=== PATIENT | female | born 1970 | race Two or more races ===

== ENCOUNTER 2022-07-03 16:29 | Emergency (ER) | payer OTHER ==
[~2022-07-03] VITALS: Ht 154.9 cm; Wt 61.2 kg
[2022-07-03] MEDS ORDERED: NORETHINDRONE AC5 MG PO (16:38)
== END 2022-07-03 21:53 | disposition home or self-care (01) ==
LOC: ER 16:29
DX: R10.2 Pelvic and perineal pain (principal)

== ENCOUNTER 2024-11-29 10:45 | Inpatient (IN) | payer OTHER ==
[~2024-11-29] VITALS: Ht 30.5 cm; Wt 63.5 kg
[~2024-11-29 10:45] MED LIST: NORETHINDRONE AC5 MG PO
[2024-11-29 15:18] LABS: RH POSITIVE
[2024-12-05] MEDS ORDERED: RINGERS SOLUTION,LACTATED 1,000 ML IV SCH (10:09)
[2024-12-05] MEDS ORDERED: CELECOXIB 200 MG CAPSULE PO STA (10:10)
[2024-12-05] MEDS ORDERED: GABAPENTIN 100 MG CAPSULE PO SCH (10:10)
[2024-12-05] MEDS ORDERED: MORPHINE SULFATE 4 MG/ML VIAL IV ONE ×2 (11:00→11:30)
[2024-12-05] MEDS ORDERED: CEFTRIAXONE SODIUM 2,000 MG VIAL IV SCH (11:15)
[2024-12-05] MEDS ORDERED: METRONIDAZOLE/SODIUM CHLORIDE 500 MG/100 ML PIGGYBACK IV SCH (11:15)
[2024-12-05] MEDS ORDERED: BUPIVACAINE HCL/PF 0.25% 30ML VIAL InF ONE (11:15)
[2024-12-05] MEDS ORDERED: LIDOCAINE HCL 1%/EPINEPHRINE 20ML VIAL IJ ONE (11:15)
[2024-12-05] MEDS ORDERED: POVIDONE-IODINE 118 ML BOTT TOP ONE (11:15)
[2024-12-05] MEDS ORDERED: ONDANSETRON HCL 2 MG/ML VIAL IV SCH (12:00)
[2024-12-05] MEDS ORDERED: ACETAMINOPHEN 325 MG TABLET PO SCH (12:00)
[2024-12-05 12:40] LABS: BASO % 0.4 % (0.1-1.2); EOS # 0.01 (0.04-0.54); EOS % 0.1 % (0.7-7.0); LYMPH # 0.91 (1.18-3.74); LYMPH % 6.0 % (19.3-53.1); MEAN PLATELET VOLUME 12.30 fl (9.4-12.4); MONO # 0.72 (0.24-0.82); MONO % 4.7 % (4.7-12.5); NEUT # 13.48 (1.56-6.13); NEUT % 88.5 % (34.0-71.1); RED CELL DISTRIBUTION WIDTH 13.2 % (11.6-14.4)
[2024-12-05 13:10] LABS: BUN CREA RATIO 15.0 (7.0-25.0); CREATININE SERUM 0.8 mg/dL (0.55-1.02); GFR 75.03; GLUCOSE FASTING 137.0 mg/dL (65-100); OSMOLALITY SERUM 281.0 MOSM/KG (275-295)
[2024-12-05] MEDS ORDERED: SUGAMMADEX SODIUM 200 MG/2 ML VIAL IV ONE (14:00)
[2024-12-05] MEDS ORDERED: VISTASEAL DUAL APPICATOR 1 EACH APPL TOP ONE (14:00)
[2024-12-05] MEDS ORDERED: THROMBIN,HU/FIBRINOGEN/CALCIUM 10 ML SYRINGE TOP ONE (14:00)
[2024-12-05 14:56] VITALS: BP 112/57
[2024-12-05 18:18] LABS: BASO % 0.3 % (0.1-1.2); EOS # 0.03 (0.04-0.54); EOS % 0.2 % (0.7-7.0); LYMPH # 0.49 (1.18-3.74); LYMPH % 3.6 % (19.3-53.1); MEAN PLATELET VOLUME 13.10 fl (9.4-12.4); MONO # 0.77 (0.24-0.82); MONO % 5.6 % (4.7-12.5); NEUT # 12.25 (1.56-6.13); NEUT % 89.9 % (34.0-71.1); RED CELL DISTRIBUTION WIDTH 13.2 % (11.6-14.4)
[2024-12-05] MEDS ORDERED: KETOROLAC TROMETHAMINE 30 MG VIAL IM ONE (22:30)
[2024-12-06 02:04] VITALS: BP 110/69
[2024-12-06 06:21] LABS: BASO % 0.3 % (0.1-1.2); EOS # 0.01 (0.04-0.54); EOS % 0.1 % (0.7-7.0); LYMPH # 1.36 (1.18-3.74); LYMPH % 14.4 % (19.3-53.1); MEAN PLATELET VOLUME 12.50 fl (9.4-12.4); MONO # 0.93 (0.24-0.82); MONO % 9.9 % (4.7-12.5); NEUT # 7.07 (1.56-6.13); NEUT % 75.0 % (34.0-71.1); RED CELL DISTRIBUTION WIDTH 13.2 % (11.6-14.4)
[2024-12-06 06:51] LABS: BUN CREA RATIO 9.0 (7.0-25.0); CREATININE SERUM 0.69 mg/dL (0.55-1.02); GFR 89.0; GLUCOSE FASTING 94.0 mg/dL (65-100); OSMOLALITY SERUM 280.0 MOSM/KG (275-295)
[2024-12-06] MEDS ORDERED: KETOROLAC TROMETHAMINE 30 MG VIAL IV ONE (07:45)
[2024-12-06] MEDS ORDERED: METOCLOPRAMIDE HCL 5 MG/ML VIAL IV ONE (07:45)
[2024-12-06 08:00] VITALS: BP 107/64
[2024-12-06] MEDS ORDERED: KETOROLAC TROMETHAMINE 30 MG VIAL IV PRN (16:30)
[2024-12-06 16:34] VITALS: BP 121/78
[2024-12-07 01:51] VITALS: BP 109/73
[2024-12-07 08:42] VITALS: BP 118/70
== END 2024-12-07 14:05 | disposition home or self-care (01) | DRG 743 ==
LOC: SURH 12-05 07:00 → O/R 12-05 08:33 → SURH 12-05 10:45 → OB/GYN 12-05 12:00
PROVIDERS: Surgery; Urology; ADMIT Obstetrics & Gynecology Gynecology; ATTEND Obstetrics & Gynecology Gynecology
PROC: 0TNB4ZZ Release Bladder, Percutaneous Endoscopic Approach (ICD-10-PCS; 2024-12-05)
PROC: 0DNP4ZZ Release Rectum, Percutaneous Endoscopic Approach (ICD-10-PCS; 2024-12-05)
PROC: 0DBP4ZZ Excision of Rectum, Percutaneous Endoscopic Approach (ICD-10-PCS; 2024-12-05)
PROC: 0UB44ZZ Excision of Uterine Supporting Structure, Percutaneous Endoscopic Approach (ICD-10-PCS; 2024-12-05)
PROC: 0DTJ4ZZ Resection of Appendix, Percutaneous Endoscopic Approach (ICD-10-PCS; 2024-12-05)
PROC: 0T788DZ Dilation of Bilateral Ureters with Intraluminal Device, Via Natural or Artificial Opening Endoscopic (ICD-10-PCS; 2024-12-05)
PROC: 0UT94ZZ Resection of Uterus, Percutaneous Endoscopic Approach (ICD-10-PCS; principal; 2024-12-05 07:00)
PROC: 0UT74ZZ Resection of Bilateral Fallopian Tubes, Percutaneous Endoscopic Approach (ICD-10-PCS; 2024-12-05 07:00)
PROC: 0DNW4ZZ Release Peritoneum, Percutaneous Endoscopic Approach (ICD-10-PCS; 2024-12-05 07:00)
DX: D25.1 Intramural leiomyoma of uterus (principal); D25.2 Subserosal leiomyoma of uterus; N80.03 Adenomyosis of the uterus; N73.6 Female pelvic peritoneal adhesions (postinfective); N80.559 Endometriosis of other parts of the colon, unspecified depth; R10.2 Pelvic and perineal pain; N94.5 Secondary dysmenorrhea; N80.3C9 Endometriosis of the uterosacral ligament(s), unspecified side, unspecified depth; N80.519 Endometriosis of the rectum, unspecified depth